=== PATIENT | male | born 1955 | race Caucasian/White ===

== ENCOUNTER 2017-01-27 23:10 | Inpatient (IN) | payer BC ==
[2017-01-27] MEDS ORDERED: MORPHINE SULFATE 4 MG/ML SYRINGE IV STA (23:20)
[2017-01-27] MEDS ORDERED: NITROGLYCERIN SL TABS 0.4 MG TAB SUBLINGUAL STA ×3 (23:20)
[2017-01-27] MEDS ORDERED: MORPHINE SULFATE 10 MG/ML SYRINGE IVP STA (23:20)
[2017-01-27] MEDS ORDERED: ASPIRIN 81 MG CHEW PO STA (23:20)
[2017-01-27] MEDS ORDERED: SODIUM CHLORIDE 0.9% 1,000 ML IV STA (23:20)
[2017-01-27 23:23] LABS: Glucose,Whole Blood 201 mg/dL (75-99)
[2017-01-27] MEDS ORDERED: IPRATROPIUM-ALBUTEROL 3 ML NEB INHALATION STA (23:23)
--- NOTE | 2017-01-27 23:23 | ED ---
General Adult HPI - General Chief complaint: Chest Pain Stated complaint: Chest Pain Time Seen by Provider: 01/27/17 23:15 Source: patient, EMS, RN notes reviewed Mode of arrival: EMS Limitations: no limitations - History of Present Illness Initial comments: Patient is a pleasant 62-year-old male presenting to the emergency department complaining of chest pain onset was just an hour ago. Patient feels very short of breath. Patient is anxious. Patient states he was sweaty. Patient states he also is nauseated. Patient does have a cardiac history however has not had discomfort similar to this previously. Patient states the past few days he has had upper respiratory symptoms and cough. - Related Data Home Medications Medication Instructions Recorded Confirmed Aspirin 81 mg PO DAILY 10/05/14 01/27/17 Atorvastatin [Lipitor] 20 mg PO HS 10/05/14 01/27/17 Isosorbide Mononitrate ER [Imdur] 60 mg PO DAILY 10/05/14 01/27/17 Metoprolol Tartrate [Lopressor] 50 mg PO BID 10/05/14 01/27/17 Nitroglycerin [Nitromist] 8.5 gm PO DAILY PRN 10/05/14 01/27/17 Ticagrelor [Brilinta] 90 mg PO BID 01/27/17 01/27/17 amLODIPine [Norvasc] 10 mg PO DAILY 01/27/17 01/27/17 Allergies Allergy/AdvReac Type Severity Reaction Status Date / Time clopidogrel bisulfate Allergy Unknown Verified 01/27/17 23:56 [From Plavix] Review of Systems ROS Statement: Those systems with pertinent positive or pertinent negative responses have been documented in the HPI. ROS Other: All systems not noted in ROS Statement are negative. Constitutional: Denies: fever Eyes: Denies: eye pain ENT: Denies: ear pain Respiratory: Reports: cough, dyspnea Cardiovascular: Reports: chest pain Endocrine: Denies: fatigue Gastrointestinal: Denies: abdominal pain Genitourinary: Denies: dysuria Musculoskeletal: Denies: back pain Skin: Denies: rash Psychiatric: Reports: anxiety Past Medical History Past Medical History: Chest Pain / Angina, CVA/TIA, Hypertension Additional Past Medical History / Comment(s): chronic back pain. History of Any Multi-Drug Resistant Organisms: None Reported Past Surgical History: Cholecystectomy Additional Past Surgical History / Comment(s): quadruple bipass Past Psychological History: No Psychological Hx Reported Smoking Status: Current every day smoker Past Alcohol Use History: None Reported Past Drug Use History: None Reported General Exam Limitations: no limitations General appearance: alert, anxious, in distress Head exam: Present: atraumatic Eye exam: Present: normal appearance, PERRL ENT exam: Present: normal oropharynx Neck exam: Present: normal inspection Respiratory exam: Present: wheezes Cardiovascular Exam: Present: tachycardia Expanded Peripheral pulses: 2+: Radial (R), Radial (L), Dorsalis Pedis (R), Dorsalis Pedis (L) GI/Abdominal exam: Present: soft. Absent: tenderness Extremities exam: Present: normal inspection. Absent: pedal edema, calf tenderness Neurological exam: Present: alert Psychiatric exam: Present: anxious Skin exam: Absent: rash Course Vital Signs 01/27/17 01/27/17 01/27/17 23:15 23:26 23:33 Temperature Pulse Rate 113 H 120 H 101 H Respiratory 20 24 Rate Blood Pressure 141/115 212/142 O2 Sat by Pulse 95 90 L Oximetry 01/27/17 01/27/17 01/27/17 23:35 23:43 23:48 Temperature 98.5 F Pulse Rate 120 H Respiratory 24 Rate Blood Pressure 199/116 O2 Sat by Pulse Oximetry 01/27/17 01/28/17 01/28/17 23:57 00:03 00:19 Temperature Pulse Rate 111 H 113 H 104 H Respiratory 22 20 20 Rate Blood Pressure 116/55 103/63 109/65 O2 Sat by Pulse 91 L 92 L 95 Oximetry 01/28/17 00:25 Temperature Pulse Rate 103 H Respiratory 20 Rate Blood Pressure 104/65 O2 Sat by Pulse 92 L Oximetry - Reevaluation(s) Reevaluation #1: 01/27/17 23:26 Case was discussed in detail with Dr. Ojeda who does recommend Lopressor 2.5 mg IV and nitroglycerin and pain medication and Lasix and chest x-ray and reassessment shortly. 01/27/17 23:28 01/27/17 23:29 Chest x-ray shows only edema. BiPAP will be started. 01/27/17 23:35 BiPAP placed and patient is already having some improvement and more relaxed. 01/28/17 00:43 Patient again reevaluated. Family was updated. Case was again discussed with Dr. Ojeda who recommends medical management at this time and ICU admission. 01/28/17 00:43 Repeat EKG shows sinus tachycardia 113. RI 156. QRS 124. QT 368. QTC 504. Normal axis. Nonspecific intraventricular conduction delay. Inferior and lateral ST depression. Q wave in aVR ST elevation. 01/28/17 01:20 Patient became progressively restless and complains of worsening shortness of breath. Patient offered intubation and is receptive. Family is present. Patient intubated without complication. 01/28/17 02:22 Patient again reevaluated and improved. Case was also discussed with Dr. Payne, who will consult. Case also discussed with practitioner Eulalia mota, who will admit for Dr. Fortune, covering for hospital call. 01/28/17 02:22 Post intubation chest x-ray showed ET tube high and ET tube was advanced 2 cm. 01/28/17 02:23 Blood pressure briefly decreased to the upper 80s however repeat was in the 90s and is currently 100 systolic. EKG Findings - EKG Comments: EKG Findings:: Sinus tachycardia 124. RI 146. QRS 108. QT 334. QTC 479. Normal axis. Q wave in lead aVR with ST elevation. Lateral ST depression. Some ST depression inferiorly. Previous EKG reviewed from 10/05/2014. Procedures - Intubation Time Out Performed: Yes Sedative: Versed Paralytic: Succinylcholine Laryngoscope: Trejo Size: 3 ET Tube Size: 8 Tube Secured Depth (cm): 22 Tube Secured Location: lips Tube Placement Confirmation: visualized tube passing through cords, equal breath sounds bilaterally, no breath sounds over epigastrium, confirmation by capnometry Patient Tolerated Procedure: well Intubation Complications: none Medical Decision Making - Lab Data Result diagrams: 01/27/17 23:22 01/27/17 23:22 Lab Results 01/27/17 01/27/17 01/27/17 Range/Units 23:21 23:22 23:22 WBC 18.8 H (3.8-10.6) k/uL RBC 5.33 (4.30-5.90) m/uL Hgb 15.6 (13.0-17.5) gm/dL Hct 48.1 (39.0-53.0) % MCV 90.3 (80.0-100.0) fL MCH 29.3 (25.0-35.0) pg MCHC 32.5 (31.0-37.0) g/dL RDW 13.9 (11.5-15.5) % Plt Count 435 (150-450) k/uL Neutrophils % 82 % Lymphocytes % 13 % Monocytes % 3 % Eosinophils % 0 % Basophils % 1 % Neutrophils # 15.5 H (1.3-7.7) k/uL Lymphocytes # 2.5 (1.0-4.8) k/uL Monocytes # 0.5 (0-1.0) k/uL Eosinophils # 0.1 (0-0.7) k/uL Basophils # 0.1 (0-0.2) k/uL PT (9.0-12.0) sec INR (<1.1) APTT (22.0-30.0) sec D-Dimer (<0.60) mg/L FEU Sodium (137-145) mmol/L Potassium (3.5-5.1) mmol/L Chloride (98-107) mmol/L Carbon Dioxide (22-30) mmol/L Anion Gap mmol/L BUN (9-20) mg/dL Creatinine (0.66-1.25) mg/dL Est GFR (MDRD) Af Amer (>60 ml/min/1.73 sqM) Est GFR (MDRD) Non-Af (>60 ml/min/1.73 sqM) Glucose (74-99) mg/dL POC Glucose (mg/dL) 201 H (75-99) mg/dL POC Glu Compliance Monitor ID Moni Maldonado Calcium (8.4-10.2) mg/dL Magnesium (1.6-2.3) mg/dL Total Bilirubin (0.2-1.3) mg/dL AST (17-59) U/L ALT (21-72) U/L Alkaline Phosphatase (38-126) U/L Total Creatine Kinase 112 (55-170) U/L CK-MB (CK-2) 1.8 (0.0-2.4) ng/mL CK-MB (CK-2) Rel Index 1.6 Troponin I 0.179 H* (0.000-0.034) ng/mL NT-Pro-B Natriuret Pep pg/mL Total Protein (6.3-8.2) g/dL Albumin (3.5-5.0) g/dL 01/27/17 01/27/17 01/27/17 Range/Units 23:22 23:22 23:22 WBC (3.8-10.6) k/uL RBC (4.30-5.90) m/uL Hgb (13.0-17.5) gm/dL Hct (39.0-53.0) % MCV (80.0-100.0) fL MCH (25.0-35.0) pg MCHC (31.0-37.0) g/dL RDW (11.5-15.5) % Plt Count (150-450) k/uL Neutrophils % % Lymphocytes % % Monocytes % % Eosinophils % % Basophils % % Neutrophils # (1.3-7.7) k/uL Lymphocytes # (1.0-4.8) k/uL Monocytes # (0-1.0) k/uL Eosinophils # (0-0.7) k/uL Basophils # (0-0.2) k/uL PT 10.1 (9.0-12.0) sec INR 1.0 (<1.1) APTT 25.6 (22.0-30.0) sec D-Dimer 1.13 H (<0.60) mg/L FEU Sodium 145 (137-145) mmol/L Potassium 4.6 (3.5-5.1) mmol/L Chloride 103 (98-107) mmol/L Carbon Dioxide 22 (22-30) mmol/L Anion Gap 20 mmol/L BUN 22 H (9-20) mg/dL Creatinine 1.60 H (0.66-1.25) mg/dL Est GFR (MDRD) Af Amer 53 (>60 ml/min/1.73 sqM) Est GFR (MDRD) Non-Af 44 (>60 ml/min/1.73 sqM) Glucose 221 H (74-99) mg/dL POC Glucose (mg/dL) (75-99) mg/dL POC Glu Compliance Monitor ID Calcium 10.4 H (8.4-10.2) mg/dL Magnesium 2.4 H (1.6-2.3) mg/dL Total Bilirubin 0.7 (0.2-1.3) mg/dL AST 34 (17-59) U/L ALT 61 (21-72) U/L Alkaline Phosphatase 155 H (38-126) U/L Total Creatine Kinase (55-170) U/L CK-MB (CK-2) (0.0-2.4) ng/mL CK-MB (CK-2) Rel Index Troponin I (0.000-0.034) ng/mL NT-Pro-B Natriuret Pep 2540 pg/mL Total Protein 8.9 H (6.3-8.2) g/dL Albumin 4.6 (3.5-5.0) g/dL - Radiology Data Radiology results: image reviewed (X-ray shows pulmonary edema) Critical Care Time Critical Care Time: Yes Total Critical Care Time: 70 Disposition Clinical Impression: Pulmonary edema, NSTEMI (non-ST elevated myocardial infarction), Respiratory failure Disposition: ADMITTED IP TO THIS [facility] Condition: Critical
[2017-01-27] MEDS ORDERED: METOPROLOL TARTRATE 5 MG/5 ML VIAL IVP ONE (23:26)
[2017-01-27] MEDS ORDERED: FUROSEMIDE 10 MG/ML 4 ML VIAL IV STA (23:27)
[2017-01-27 23:32] LABS: Basophils # (A) 0.1 k/uL (0-0.2); Basophils % (A) 1 %; CH 29.6; CHCM 32.9; Eosinophils # (A) 0.1 k/uL (0-0.7); Eosinophils % (A) 0 %; HCT 48.1 % (39.0-53.0); HDW 2.71; HGB 15.6 gm/dL (13.0-17.5); Luc # (Auto) 0.19; Luc % (Auto) 1; Lymphocytes # (A) 2.5 k/uL (1.0-4.8); Lymphocytes % (A) 13 %; MCH 29.3 pg (25.0-35.0); MCHC 32.5 g/dL (31.0-37.0); MCV 90.3 fL (80.0-100.0); Mean Platelet Volume 7.7; Monocytes # (A) 0.5 k/uL (0-1.0); Monocytes % (A) 3 %; Neutrophils # (A) 15.5 k/uL (1.3-7.7); Neutrophils % (A) 82 %; RBC 5.33 m/uL (4.30-5.90); RDW 13.9 % (11.5-15.5); WBC 18.8 k/uL (3.8-10.6)
--- NOTE | 2017-01-27 23:40 | XR ---
Exam: FILM CXR 01/27/17 at 2324 hrs. Single frontal view chest INDICATION: Chest pain COMPARISON: Chest radiograph 10/05/14 FINDINGS: Sternotomy with cardiac megaly with venous congestion and perihilar infiltrate in the mid and lower lung wooten bilaterally. No significant effusion identified. No pneumothorax. Mild prominence of the mediastinal contour may be positional and related to portable technique. No acute osseous abnormality.. Bony elements are within normal limits for age. No acute osseous abnormality. IMPRESSION: Sternotomy with cardiomegaly with congestive heart failure and pulmonary edema. No pneumothorax or significant effusion.
[2017-01-27 23:45] LABS: Calcium 10.4 mg/dL (8.4-10.2); Magnesium 2.4 mg/dL (1.6-2.3); Potassium 4.6 mmol/L (3.5-5.1); Total Bilirubin 0.7 mg/dL (0.2-1.3); Total Protein 8.9 g/dL (6.3-8.2)
[2017-01-27] MEDS ORDERED: NITROGLYCERIN-D5W PMX 50 MG in DEXTROSE/WATER 1 250ML.BAG IV ONE (23:49)
[2017-01-27 23:53] LABS: Partial Thromboplastin Time 25.6 sec (22.0-30.0); Prothrombin Time 10.1 sec (9.0-12.0)
[2017-01-28 00:05] LABS: Creatine Kinase MB 1.8 ng/mL (0.0-2.4)
[2017-01-28 00:08] LABS: Troponin I 0.179 ng/mL (0.000-0.034)
[2017-01-28] MEDS ORDERED: FUROSEMIDE 250 MG in SODIUM CHLORIDE 0.9% 225 ML IVP STA (00:10)
[2017-01-28] MEDS ORDERED: HEPARIN SODIUM,PORCINE 5,000 UNIT/ML 1 ML VIAL IV ONE (00:39)
[2017-01-28] MEDS ORDERED: HEPARIN SODIUM,PORCINE 5,000 UNIT/ML 1 ML VIAL IV PRN (00:39)
[2017-01-28] MEDS ORDERED: HEPARIN SODIUM,PORCINE/D5W PMX 25,000 UNIT in DEXTROSE/WATER 1 500ML.BAG IV SCH (00:45)
[2017-01-28] MEDS ORDERED: LORazepam 2 MG/ML SYRINGE IV STA (00:46)
[2017-01-28] MEDS ORDERED: IPRATROPIUM-ALBUTEROL 3 ML NEB INHALATION PRN (01:22)
[2017-01-28] MEDS ORDERED: LORazepam 2 MG/ML SYRINGE IV PRN ×2 (01:22)
[2017-01-28] MEDS ORDERED: MIDAZOLAM 2 MG/2 ML VIAL IV ONE (01:23)
[2017-01-28] MEDS ORDERED: SUCCINYLCHOLINE CHLORIDE VIAL 200 MG/10 ML VIAL IV STA (01:24)
[2017-01-28] MEDS ORDERED: PROPOFOL 500 MG in EMPTY BAG 1 BAG IV SCH (01:30)
--- NOTE | 2017-01-28 02:19 | XR ---
EXAM: XR Chest, 1 View. CLINICAL HISTORY: Reason: Tube placement TECHNIQUE: Frontal view of the chest. COMPARISON: Chest x-ray 01/27/2017 FINDINGS: Lungs: Stable diffuse bilateral hazy airspace opacities. Pleural space: Small left pleural effusion. Right costophrenic not included in the field of view. Heart: Stable enlargement of the cardiac silhouette. Mediastinum: Unremarkable. Tubes, lines and devices: ET tube tip is 7 cm above the morteza, at the upper limits of normal placement. IMPRESSION: 1. ET tube tip is 7 cm above the morteza, at the upper limits of normal placement. 2. Stable diffuse bilateral hazy airspace opacities. Differential considerations include pulmonary edema versus multifocal pneumonia versus ARDS. 3. Stable enlargement of the cardiac silhouette. 4. Small left pleural effusion. Right costophrenic not included in the field of view.
[2017-01-28] MEDS ORDERED: MORPHINE SULFATE 10 MG/ML SYRINGE IV PRN (02:24)
[2017-01-28] MEDS ORDERED: MORPHINE SULFATE 4 MG/ML SYRINGE IV PRN ×2 (02:24)
[2017-01-28] MEDS ORDERED: NALOXONE 0.4 MG/ML 1 ML VIAL IV PRN ×2 (02:24→05:55)
[2017-01-28] MEDS ORDERED: MORPHINE SULFATE 2 MG/ML SYRINGE IV PRN ×2 (02:24)
[2017-01-28] MEDS ORDERED: SODIUM CHLORIDE 0.9% 1,000 ML IV SCH (02:30)
[2017-01-28 03:54] LABS: Glucose,Whole Blood 308 mg/dL (75-99)
[2017-01-28] MEDS: IPRATROPIUM-ALBUTEROL 3 ML NEB INHALATION SCH ×3 (04:01→11:18)
[2017-01-28 04:05] LABS: ABG HCO3 16 mmol/L (21-25); ABG PCO2 45 mmHg (35-45); ABG PH 7.18 (7.35-7.45); ABG PO2 118 mmHg (83-108)
[2017-01-28 04:06] LABS: ABG Base Excess -10.8 mmol/L; ABG TCO2 17 mmol/L (19-24)
[2017-01-28 04:42] LABS: ABG HCO3 18 mmol/L (21-25); ABG PCO2 36 mmHg (35-45); ABG PH 7.32 (7.35-7.45); ABG PO2 67 mmHg (83-108)
[2017-01-28 04:43] LABS: ABG TCO2 19 mmol/L (19-24)
[2017-01-28 05:52] VITALS: TEMP 97.3; BMI 32.6
[2017-01-28] MEDS: PROPOFOL 500 MG in EMPTY BAG 1 BAG IV SCH ×2 (06:19→08:55)
[2017-01-28 06:48] LABS: Basophils # (A) 0.1 k/uL (0-0.2); Basophils % (A) 0 %; CH 29.3; CHCM 31.8; Eosinophils % (A) 0 %; HDW 2.67; Luc # (Auto) 0.23; Luc % (Auto) 1; Lymphocytes # (A) 0.9 k/uL (1.0-4.8); Lymphocytes % (A) 4 %; MCHC 31.2 g/dL (31.0-37.0); MCV 92.7 fL (80.0-100.0); Mean Platelet Volume 7.7; Monocytes % (A) 4 %; Neutrophils # (A) 20.9 k/uL (1.3-7.7); Neutrophils % (A) 90 %; RBC 4.85 m/uL (4.30-5.90); WBC 23.1 k/uL (3.8-10.6); WBC (Perox) 23.66
[2017-01-28 06:54] LABS: Appearance,Urine Turbid (Clear); Bilirubin,Urine Negative (Negative); Glucose,Urine (UA) 1+ (Negative); Granular Casts,Urine 443 /lpf (0); Ketones,Urine Negative (Negative); Leukocyte Esterase,Urine Trace (Negative); Mucus,Urine Rare /hpf; Nitrite,Urine Negative (Negative); PH, Urine 5.5 (5.0-8.0); Particle Count 80704; Protein,Urine 2+ (Negative); RBC,Urine >182 /hpf (0-5); Specific Gravity,Urine 1.017 (1.001-1.035); Squamous Epithelial Cell,Urine 2 /hpf (0-4); UA Billing (MACRO vs. MICRO) MICRO; WBC,Urine 79 /hpf (0-5)
[2017-01-28 06:57] LABS: Calcium 8.8 mg/dL (8.4-10.2); Magnesium 2.5 mg/dL (1.6-2.3); Phosphorous 5.8 mg/dL (2.5-4.5); Potassium 5.7 mmol/L (3.5-5.1)
[2017-01-28] MEDS ORDERED: HEPARIN SODIUM,PORCINE 5,000 UNIT/ML 1 ML VIAL IV STA (07:31)
[2017-01-28 08:03] VITALS: PULSE 84
[2017-01-28 08:05] LABS: Troponin I 54.8 ng/mL (0.000-0.034)
[2017-01-28] MEDS ORDERED: PANTOPRAZOLE 40 MG/10 ML VIAL IV SCH (09:00)
[2017-01-28] MEDS ORDERED: AZITHROMYCIN 500 MG in SODIUM CHLORIDE 0.9% 250 ML IVPB SCH (09:00)
[2017-01-28] MEDS ORDERED: CHLORHEXIDINE GLUCONATE 15 ML CUP MUCOUS MEM SCH (09:00)
[2017-01-28] MEDS ORDERED: TICAGRELOR 90 MG TAB PO SCH (09:15)
[2017-01-28] MEDS ORDERED: ASPIRIN 81 MG CHEW PO SCH (09:15)
[2017-01-28] MEDS ORDERED: INSULIN REGULAR BOLUS (FROM DRIP BAG) IV PRN (09:26)
--- NOTE | 2017-01-28 09:26 | P.CNPUL ---
History of Present Illness Consult date: 01/28/17 Chief complaint: pulmonary edema History of present illness: 62-year-old male patient with known history of coronary artery disease at a very young age and the patient has had multiple coronary interventions including angiograms, angioplasties and stenting. The patient also has a previous carotid bypass surgery that was done approximately 25 years ago at [facility]. He is currently being followed up by cardiology group and [place], [place]. The patient's tells me that the patient has had multiple grafted or bypassed vessels occluded and apparently the BROWN was still patent and this is based on conversations that she had with his epic specialist. The patient did not have any history of congestion heart failure. He has hyperlipidemia and he is still smoking a few cigarettes on a daily basis. Has been maintained on a combination of aspirin and Balint on outpatient basis in addition to metoprolol and induced. Over the past 1 week, the patient has been experiencing progressive exertional dyspnea, orthopnea and proximal internal dyspnea. The patient reported to his that he was unable to lay down flat as he would wake up and goes of increased shortness of breath. Over the past 24-48 hours, the patient started having episodes of chest pain and by yesterday the chest pain got worse and presented to the hospital because of worsening shortness of breath and he was found to be in acute pulmonary edema. He was intubated and placed on a mechanical ventilator in the emergency department following that the patient got transferred to the ICU. Initial troponin was 0.179 and the initial EKG showed some ST segment depression over the inferior lateral leads and there was no ST segment elevation. Initial creatinine was at 1.6 and the patient is not known to have any form of chronic renal failure. Subsequent troponin peaked at 54.8 and this was consistent with acute non-ST segment elevation myocardial infarction. Overnight, the patient was sedated with Diprivan. The patient was kept on a mechanical ventilator on assist control mode at the rate of 14, tidal volume of 650, FiO2 of 100% and PEEP of 10. Initial blood gases showed a component of respiratory acidosis and metabolic acidosis. Subsequent blood gases from this morning showed a pH of 7.32 with a pCO2 of 36 and pO2 of 67. The patient was started on Lasix drip at 10 mg an hour. Urine output somewhat between 30-35 mL an hour. Creatinine subsequently from this morning is up to 2.1. He is on no pressors and his been a pressures around 65. He is afebrile. No significant orotracheal secretions. Echocardiogram was done this morning showed predominate findings of severe LV dysfunction with an ejection fraction of around 20%. Discussed the case with cardiology. We will further discussed the case with his main epic specialist at [facility] in [place] and the patient may be potentially transferred today. Meanwhile, the patient is still on a combination of aspirin and Balint. The patient was IV heparin. We'll consider dobutamine to augment the cardiac output. Review of Systems ROS unobtainable: due to endotracheal tube Past Medical History Past Medical History: Chest Pain / Angina, Hypertension Additional Past Medical History / Comment(s): Multivessel coronary artery disease, previous coronary artery bypass surgery, previous coronary intervention and stenting, hyperlipidemia, hypertension, chronic back pain. History of Any Multi-Drug Resistant Organisms: None Reported Past Surgical History: Cholecystectomy, Coronary Bypass/CABG Additional Past Surgical History / Comment(s): quadruple bipass 1990 Past Anesthesia/Blood Transfusion Reactions: No Reported Reaction Past Psychological History: No Psychological Hx Reported Smoking Status: Current every day smoker Past Alcohol Use History: None Reported Past Drug Use History: None Reported Medications and Allergies Home Medications Medication Instructions Recorded Confirmed Type Aspirin 81 mg PO DAILY 10/05/14 01/27/17 History Atorvastatin [Lipitor] 20 mg PO HS 10/05/14 01/27/17 History Isosorbide Mononitrate ER [Imdur] 60 mg PO DAILY 10/05/14 01/27/17 History Metoprolol Tartrate [Lopressor] 50 mg PO BID 10/05/14 01/27/17 History Nitroglycerin [Nitromist] 8.5 gm PO DAILY PRN 10/05/14 01/27/17 History Ticagrelor [Brilinta] 90 mg PO BID 01/27/17 01/27/17 History amLODIPine [Norvasc] 10 mg PO DAILY 01/27/17 01/27/17 History Allergies Allergy/AdvReac Type Severity Reaction Status Date / Time clopidogrel bisulfate Allergy Unknown Verified 01/27/17 23:56 [From Plavix] Physical Exam Vitals: Vital Signs Temp Pulse Pulse Resp BP BP Pulse Ox 01/28/17 08:02 84 01/28/17 07:40 85 01/28/17 07:00 86 16 107/80 100 01/28/17 06:30 78 14 104/72 100 01/28/17 06:00 84 15 102/76 100 01/28/17 05:30 84 22 102/74 100 01/28/17 05:00 84 12 103/68 98 01/28/17 04:30 83 27 H 98/71 92 L 01/28/17 04:00 97.3 F L 87 84 26 H 92/61 102/76 93 L 01/28/17 03:52 14 90/55 99 01/28/17 03:24 73 20 90/57 96 01/28/17 03:10 81 14 90/50 98 01/28/17 02:32 105 H 16 106/67 01/28/17 02:25 93 16 104/68 98 Intake and Output 01/27/17 01/28/17 01/28/17 22:59 06:59 14:59 Intake Total 101.875 42.684 Output Total 90 30 Balance 11.875 12.684 Intake: IV 80 30 Furosemide 250 mg In 20 10 Sodium Chloride 0.9% 225 ml @ 10 MG/HR 10 mls/hr IVP .Q24H [facility] Rx#: [id number] Sodium Chloride 0.9% 1, 60 20 000 ml @ 20 mls/hr IV . Q24H [facility] Rx#:[id number] Intake, IV Titration 21.875 12.684 Amount Propofol 500 mg In Empty 21.875 Bag 1 bag @ Titrate IV . Q0M [facility] Rx#:[id number] Propofol 500 mg In Empty 12.684 Bag 1 bag @ Titrate IV . Q0M [facility] Rx#:[id number] Output: Urine 90 30 Other: Voiding Method Indwelling Catheter Weight 103.3 kg The patient Is currently sedated with Diprivan, comfortable on a mechanical ventilator.Head exam was generally normal. There was no scleral icterus or corneal arcus. Mucous membranes were moist. Neck is supple and there is positive JVDs and there is no goiter or neck masses. Lungs sounds are diminished bilaterally especially lung bases along with some bibasilar crackles. No wheezes or rhonchi. Heart sounds are regular with an S3 gallop. No significant murmurs appreciated.Abdominal exam revealed normal bowel sounds. The abdomen was soft, non-tender, and without masses, organomegaly, or appreciable enlargement of the abdominal aorta. Extremities are cold and there is diminished pulses in the lower oximetry is bilaterally without any significant cyanosis or clubbing or edema. Results - Laboratory Findings CBC and BMP: 01/28/17 06:21 01/28/17 06:16 ABG ABG pH 7.32 (7.35-7.45) L 01/28/17 04:19 ABG pCO2 36 mmHg (35-45) 01/28/17 04:19 ABG pO2 67 mmHg (83-108) L 01/28/17 04:19 ABG O2 Saturation 91.0 % (94-97) L 01/28/17 04:19 PT/INR, D-dimer PT 10.1 sec (9.0-12.0) 01/27/17 23:22 INR 1.0 (<1.1) 01/27/17 23:22 D-Dimer 1.13 mg/L FEU (<0.60) H 01/27/17 23:22 Abnormal lab findings: Abnormal Labs 01/28/17 01/28/17 01/28/17 02:25 03:52 04:19 WBC Neutrophils # Lymphocytes # APTT ABG pH 7.18 L* 7.32 L ABG pO2 118 H 67 L ABG HCO3 16 L 18 L ABG Total CO2 17 L ABG O2 Saturation 91.0 L Potassium Carbon Dioxide BUN Creatinine Glucose POC Glucose (mg/dL) 308 H Plasma Lactic Acid Lg Phosphorus Magnesium Total Creatine Kinase CK-MB (CK-2) Troponin I Urine Protein Urine Glucose (UA) Urine Blood Ur Leukocyte Esterase Urine RBC Urine WBC Hyaline Casts Urine Mucus Urine Yeast (Budding) 01/28/17 01/28/17 01/28/17 06:15 06:16 06:16 WBC Neutrophils # Lymphocytes # APTT ABG pH ABG pO2 ABG HCO3 ABG Total CO2 ABG O2 Saturation Potassium 5.7 H Carbon Dioxide 17 L BUN 29 H Creatinine 2.10 H Glucose 239 H POC Glucose (mg/dL) Plasma Lactic Acid Lg 2.3 H* Phosphorus 5.8 H Magnesium 2.5 H Total Creatine Kinase 3894 H CK-MB (CK-2) 145.0 H* Troponin I 54.800 H* Urine Protein Urine Glucose (UA) Urine Blood Ur Leukocyte Esterase Urine RBC Urine WBC Hyaline Casts Urine Mucus Urine Yeast (Budding) 01/28/17 01/28/17 01/28/17 06:20 06:21 06:21 WBC 23.1 H Neutrophils # 20.9 H Lymphocytes # 0.9 L APTT 43.2 H ABG pH ABG pO2 ABG HCO3 ABG Total CO2 ABG O2 Saturation Potassium Carbon Dioxide BUN Creatinine Glucose POC Glucose (mg/dL) Plasma Lactic Acid Lg Phosphorus Magnesium Total Creatine Kinase CK-MB (CK-2) Troponin I Urine Protein 2+ H Urine Glucose (UA) 1+ H Urine Blood Large H Ur Leukocyte Esterase Trace H Urine RBC >182 H Urine WBC 79 H Hyaline Casts 10 H Urine Mucus Rare H Urine Yeast (Budding) Occasional H - Diagnostic Findings Chest x-ray: image reviewed Assessment and Plan Plan: Assessment 1 acute hypoxic respiratory failure secondary to acute pulmonary edema in the setting of an acute non-ST segment myocardial infarction and acute decompensated heart failure/cardiogenic shock. 2 acute respiratory failure, currently intubated on a mechanical ventilator/ ventilator dependent respiratory failure 3 acute non-ST segment elevation myocardial infarction 4 acute decompensated heart failure, systolic dysfunction with an ejection fraction of less than 20%. His baseline cardiac function is not known. 5 multivessel coronary artery disease with previous coronary intervention and stenting and previous bypass surgery that was done back in 1989 6 acute kidney injury secondary to above rule out cardiorenal factors, rule out acute tubular necrosis secondary to heart failure/hypotension 7 acute metabolic and respiratory acidosis secondary to above 8 borderline hyperkalemia with a potassium level of 5.7. 9 acute hyperglycemia secondary to above. No underlying history of diabetes mellitus Plan Condition is critical. Continue vent support. This event changes will be done. Meanwhile, we'll consider triple-lumen catheter for hemodynamic support and access. We'll insert an art line catheter. We'll consider dobutamine at a low dose as long as the patient's blood pressure tolerates and this will be started 2.5 mg per KG pigmented. Continue Lasix drip at 10 mg an hour. Awaiting final report on the echocardiogram that was performed today. Continue aspirin. Continue the Alimta. Continue IV heparin. Empiric antibiotic coverage with IV Rocephin especially that there may be a suspicious UTI. Keep the patient sedated with Diprivan. Monitor the potassium level. We'll discuss the case with cardiology and the team at [facility] for possible transfer. May benefit from an Impala device. I will leave the final decision up to cardiology. Discussed the case with the family.
[2017-01-28] MEDS ORDERED: DOBUTamine DRIP 500 MG in DEXTROSE/WATER 1 250ML.BAG IV SCH (09:30)
[2017-01-28] MEDS ORDERED: INSULIN REGULAR 100 UNIT in SODIUM CHLORIDE 0.9% 100 ML IV SCH (09:30)
[2017-01-28] MEDS ORDERED: NOREPINEPHRINE 4 MG-0.9% NS PMX 250 ML IV ONE (09:42)
--- NOTE | 2017-01-28 09:47 | XR ---
EXAMINATION TYPE: XR chest 1V portable DATE OF EXAM: 01/28/2017 7:16 AM COMPARISON: 01/28/2017 HISTORY: Shortness of breath TECHNIQUE: Single frontal view of the chest is obtained. FINDINGS: NG tube now seen with the tip overlying the left upper quadrant. ET tube stable. Postsurgi koby changes noted with diffuse bilateral airspace disease and small effusions. Arthropathy of the shoulders. Cardiomegaly stable. IMPRESSION: 1. NG tube appears in good position. 2. Persistent airspace disease differential includes ARDS, diffuse multifocal pneumonia, or pulmonary edema.
--- NOTE | 2017-01-28 09:53 | ECHOF ---
Referral Reason:NSTEMI MEASUREMENTS -------- HEIGHT: 177.8 cm WEIGHT: 103.0 kg BP: 102/73 RVIDd: 2.9 cm (< 3.3) IVSd: 1.2 cm (0.6 - 1.1) LVIDd: 5.6 cm (3.9 - 5.3) LVPWd: 1.3 cm (0.6 - 1.1) IVSs: 1.4 cm LVIDs: 4.7 cm LVPWs: 1.8 cm LA Diam: 4.3 cm (2.7 - 3.8) LAESV Index (A-L): 20.56 ml/m Ao Diam: 2.9 cm (2.0 - 3.7) AV Cusp: 1.8 cm (1.5 - 2.6) MV EXCURSION: 17.354 mm (> 18.000) MV EF SLOPE: 43 mm/s (70 - 150) EPSS: 1.5 cm MV E Juan: 1.06 m/s MV DecT: 141 ms MV A Juan: 0.42 m/s MV E/A Ratio: 2.55 AR PHT: 298 ms RAP: 5.00 mmHg RVSP: 32.03 mmHg FINDINGS -------- Sinus rhythm. This was a technically difficult study with suboptimal apical views. The left ventricular size is normal. There is mild concentric left ventricular hypertrophy. Overall left ventricular systolic function is severely impaired with, an EF between 25 - 30 %. Basal anterior LV wall motion is hypokinetic. Basal lateral LV wall motion is hypokinetic. Basal posterior LV wall motion is hypokinetic. Basal inferior LV wall motion is hypokinetic. Mid anterior LV wall motion is hypokinetic. Mid lateral LV wall motion is hypokinetic. Apical lateral LV wall motion is hypokinetic. The right ventricle is normal in size. Normal LA size by volume 22+/-6 ml/m2. The right atrium was not well visualized. 1.5mg of Definity was utilized for enhancement of images Aortic valve is trileaflet and is mildly thickened. There is mild aortic regurgitation. Mild mitral annular calcification present. Moderate mitral regurgitation is present. Mild tricuspid regurgitation present. Right ventricular systolic pressure is normal at < 35 mmHg. Trace/mild (physiologic) pulmonic regurgitation. The aortic root size is normal. The inferior vena cava is mildly dilated. There is no pericardial effusion. CONCLUSIONS -------- 1. Sinus rhythm. 2. Mid anterior LV wall motion is hypokinetic. 3. Mid lateral LV wall motion is hypokinetic. 4. Apical lateral LV wall motion is hypokinetic. 5. The right ventricle is normal in size. 6. Normal LA size by volume 22+/-6 ml/m2. 7. The right atrium was not well visualized. 8. 1.5mg of Definity was utilized for enhancement of images 9. Aortic valve is trileaflet and is mildly thickened. 10. There is mild aortic regurgitation. 11. Mild mitral annular calcification present. 12. This was a technically difficult study with suboptimal apical views. 13. Moderate mitral regurgitation is present. 14. Mild tricuspid regurgitation present. 15. Right ventricular systolic pressure is normal at < 35 mmHg. 16. Trace/mild (physiologic) pulmonic regurgitation. 17. The aortic root size is normal. 18. The inferior vena cava is mildly dilated. 19. There is no pericardial effusion. 20. The left ventricular size is normal. 21. There is mild concentric left ventricular hypertrophy. 22. Overall left ventricular systolic function is severely impaired with, an EF between 25 - 30 %. 23. Basal anterior LV wall motion is hypokinetic. 24. Basal lateral LV wall motion is hypokinetic. 25. Basal posterior LV wall motion is hypokinetic. 26. Basal inferior LV wall motion is hypokinetic. [employer]ACHINE TENDER: Rachel Lao RDCS
[2017-01-28] MEDS ORDERED: NOREPINEPHRINE 16 MG in SODIUM CHLORIDE 0.9% 250 ML IV SCH (10:00)
[2017-01-28 10:08] LABS: Glucose,Whole Blood 136 mg/dL (75-99)
--- NOTE | 2017-01-28 10:14 | CONS ---
DATE OF CONSULTATION: Mr. Clark is a 62-year-old gentleman who is seen for cardiac evaluation. The history was obtained from the as well as from the emergency room chart. This patient has a prior history of coronary artery bypass surgery about 25 years ago. He currently is being followed at ambulatory services representative at [facility]. Patient had a multiple stent procedure done. After that, the last stent was done in June. According to , only his BROWN graft to the LAD is open and the rest of the veins are closed. Patient had been having some difficulty in breathing over the last one week. Yesterday patient complained of chest pain and patient was brought to the emergency room. With nitroglycerin, patient's pain subsided, but patient was having significant shortness of breath and the patient because of the subsequent respiratory distress was intubated. Patient remains currently intubated. Past medical history includes a history of coronary artery bypass surgery and history of multiple stents. Patient's home medications include Brilinta 90 mg b.i.d., Norvasc 10 mg daily, Nitromist, Lopressor 50 mg b.i.d., Imdur 60 mg daily, Lipitor 20 mg daily, aspirin once a day. Physical examination at present reveals a 62-year-old gentleman who is currently intubated. Blood pressure is 107/80 mmHg, heart rate is 85 per minute. Patient's oxygen saturation is 100%. Head/ENT examination is negative. Neck is supple. There is no increase in jugular venous pressure. Jugular venous pressure is difficult to assess. Both the carotid pulses are felt. There is no bruit. Chest is symmetrical. HEART: The PMI is not felt. First and second heart sounds are normal. There is no evidence of any significant murmur. LUNGS: Examination reveals bilateral wheezing. Abdomen is soft. EXTREMITIES: Peripheral pulsations are 1+. EKG shows normal sinus rhythm with sinus tachycardia. ST segment depression is noted in the inferior leads. Patient's initial white count was 18,000, white count now is 23,000. Arterial blood gases initially showed respiratory acidosis. Blood gases now shows pH of 7.32. Potassium is 5.7. Creatinine is increased to 2.10. Patient's troponin is a 54.8 and CPK is 3800. Echocardiogram reveals severely impaired left ventricular systolic function with ejection fraction of 20% to 25%. FINAL IMPRESSION: 1. This patient has presented with acute pulmonary edema and at present this patient is in impending cardiogenic shock. 2. Patient has ischemic cardiomyopathy with a prior coronary artery bypass surgery, multiple stents in the past. 3. Non- ST segment-elevation myocardial infarction. RECOMMENDATION: The patient's condition is very poor. At present we will continue the supportive treatment. We will add dobutamine 2.5 mcg and increase the dose as tolerated. Discussed the condition with . The would like the patient to be transferred. I also discussed with patient's ambulatory services representative at [facility] for further management and transfer, ( ) device. Patient's overall prognosis is guarded. Patient's ambulatory services representative is going to let me know whether they can transfer the patient or not. Thank you very much for letting me participate in the care of this nice gentleman.
--- NOTE | 2017-01-28 10:22 | XR ---
EXAMINATION TYPE: XR chest 1V portable DATE OF EXAM: 01/28/2017 10:07 AM CLINICAL HISTORY: Subclavian line placement. TECHNIQUE: Single AP portable upright view of the chest is obtained. COMPARISON: Chest x-ray from earlier today. FINDINGS: There is new left subclavian central venous catheter with tip in SVC. An endotracheal tube and orogastric tube are stable in appearance. Post CABG changes with mediastinal clips and sternal wires is redemonstrated. There is persisting cardiomegaly with central vascular co ngestion and small bilateral pleural effusions with more dense left basilar infiltrate and/or atelect asis is seen. Degenerative arthropathy left glenohumeral joint is present. IMPRESSION: New left subclavian central venous catheter with tip in SVC. No evidence of pneumothorax after catheter placement. There is persisting cardiomegaly with central vascular congestion and small bilateral pleural effusions. There is persistent left greater than right bibasilar infiltrate and/or atelectasis, some slight improved aeration right lung base is felt present since prior.
[2017-01-28] MEDS ORDERED: SODIUM POLYSTYRENE SULFONATE 15 GM/60 ML BOTTLE PO STA (10:34)
[2017-01-28 10:44] LABS: ABG Base Excess -6.1 mmol/L; ABG HCO3 18 mmol/L (21-25); ABG PCO2 32 mmHg (35-45); ABG PH 7.38 (7.35-7.45); ABG PO2 83 mmHg (83-108); ABG TCO2 19 mmol/L (19-24)
[2017-01-28 11:18] VITALS: BP 101/71; RESP 7
[2017-01-28 13:37] LABS: Hemoglobin A1C 6.1 % (4.2-6.1)
--- NOTE | 2017-01-28 19:21 | PCN ---
DATE OF PROCEDURE: TRIPLE LUMEN CATHETER PLACEMENT Indication: Hemodynamic monitoring/Intravenous access. PREOPERATIVE DIAGNOSIS: Cardiogenic shock POSTOPERATIVE DIAGNOSIS: Cardiogenic shock A time-out was completed verifying correct patient, procedure, site, positioning, and implant(s) or special equipment if applicable. The patient was placed in a dependent position appropriate for triple lumen catheter placement based on the vein to be cannulated. The patient's right shoulder was prepped and draped in sterile fashion. 1% Lidocaine was used to anesthetize the surrounding skin area. A triple lumen 9F Cordis catheter was introduced into the subclavian vein using Seldinger technique. The catheter was threaded smoothly over the guide wire and appropriate blood return was obtained. Each lumen of the catheter was evacuated of air and flushed with sterile saline. The catheter was then sutured in place to the skin and a sterile dressing applied. Perfusion to the extremity distal to the point of catheter insertion was checked and found to be adequate. No bedside complications or bleeding.
--- NOTE | 2017-01-28 19:21 | PCN ---
DATE OF PROCEDURE: ARTERIAL LINE PLACEMENT Indication: Hemodynamic monitoring. PREOPERATIVE DIAGNOSIS: Cardiogenic shock POSTOPERATIVE DIAGNOSIS: Cardiogenic shock A time-out was completed verifying correct patient, procedure, site, positioning, and implant(s) or special equipment if applicable. Ap's test was performed to ensure adequate perfusion. The patient's left wrist was prepped and draped in sterile fashion. 1% Lidocaine was used to anesthetize the area. An 18G Arrow arterial line was introduced into the radial artery. The catheter was threaded over the guide wire and the needle was removed with appropriate pulsatile blood return. Blood loss was minimal. The catheter was then sutured in place to the skin and a sterile dressing applied. Perfusion to the extremity distal to the point of catheter insertion was checked and found to be adequate. The patient tolerated the procedure well and there were no complications.
--- NOTE | 2017-01-28 20:57 | HP ---
DATE OF ADMISSION: 01/28/2017 CHIEF COMPLAINT: Respiratory failure. HISTORY OF PRESENT ILLNESS: This 62-year-old gentleman with a past medical history of multiple medical problems was admitted with acute hypoxic respiratory failure secondary to acute pulmonary edema. Patient is mechanically ventilated. The patient was seen by Dr. Payne and the patient was subsequently transferred to [facility] for further evaluation and treatment. The patient has a complicated cardiac history also. The patient also had features of acute [id number]-[id number]-elevation myocardial infarction. Please refer to Dr. Payne's dictation for a full list of diagnoses.
[2017-01-29] MEDS ORDERED: ASPIRIN 325 MG TAB PO SCH (09:00)
--- NOTE | 2017-01-29 15:43 | DS ---
DATE OF ADMISSION: 01/28/2017 DATE OF DISCHARGE: 01/28/2017 FINAL DIAGNOSIS: Acute hypoxic respiratory failure secondary to acute pulmonary edema secondary to acute [id number]-elevation myocardial infarction with complications such as heart failure and cardiogenic shock. HISTORY OF PRESENT ILLNESS: This 62-year-old gentleman with a past medical history of multiple medical problems was admitted with acute hypoxic respiratory failure and acute pulmonary edema, acute myocardial infarction and multiple other complex medical issues. The patient was admitted to the ICU. The patient was transferred to [facility] by Dr. Payne before being seen. Please refer to Dr. Payne's history and physical, consultation for list of diagnoses. The prognosis was guarded and the patient has multiple physicians apparently in the [facility] system, per staff.
== END 2017-01-28 10:45 | disposition short-term general hospital (02) | DRG 280 ==
LOC: EC 23:10 → 6ICU 01-28 02:24
PROVIDERS: ADMIT Hospitalist; ATTEND Hospitalist
PROC: 0BH17EZ Insertion of Endotracheal Airway into Trachea, Via Natural or Artificial Opening (ICD-10-PCS; principal; 2017-01-28)
PROC: 03HY32Z Insertion of Monitoring Device into Upper Artery, Percutaneous Approach (ICD-10-PCS; 2017-01-28)
PROC: 5A1935Z Respiratory Ventilation, Less than 24 Consecutive Hours (ICD-10-PCS; 2017-01-28)
PROC: 05H533Z Insertion of Infusion Device into Right Subclavian Vein, Percutaneous Approach (ICD-10-PCS; 2017-01-28)
PROC: 4A133B1 Monitoring of Arterial Pressure, Peripheral, Percutaneous Approach (ICD-10-PCS; 2017-01-28)
PROC: 4A133J1 Monitoring of Arterial Pulse, Peripheral, Percutaneous Approach (ICD-10-PCS; 2017-01-28)
DX: I21.4 Non-ST elevation (NSTEMI) myocardial infarction (principal); R57.0 Cardiogenic shock; J96.01 Acute respiratory failure with hypoxia; I50.21 Acute systolic (congestive) heart failure; E87.4 Mixed disorder of acid-base balance; N17.9 Acute kidney failure, unspecified; I11.0 Hypertensive heart disease with heart failure; E87.5 Hyperkalemia; I25.5 Ischemic cardiomyopathy; E78.5 Hyperlipidemia, unspecified; F17.210 Nicotine dependence, cigarettes, uncomplicated; I25.10 Atherosclerotic heart disease of native coronary artery without angina pectoris; G89.29 Other chronic pain; M54.9 Dorsalgia, unspecified; R73.9 Hyperglycemia, unspecified; Z95.1 Presence of aortocoronary bypass graft; Z95.5 Presence of coronary angioplasty implant and graft; Z86.73 Personal history of transient ischemic attack (TIA), and cerebral infarction without residual deficits; Z90.49 Acquired absence of other specified parts of digestive tract; Z79.82 Long term (current) use of aspirin; Z79.899 Other long term (current) drug therapy; Z79.02 Long term (current) use of antithrombotics/antiplatelets
CPT/HCPCS: 31500; 36415; 36600; 71010; 80048; 80053; 81001; 82550; 82553; 82805; 83036; 83605; 83735; 83880; 84100; 84132; 84484; 85025; 85379; 85610; 85730; 87040; 87070; 87086; 87205; 93005; 93306; 94002; 94640; 94660; 96365; 96375; 96376; 99291